=== PATIENT | male | born 1975 | race Caucasian/White ===

== ENCOUNTER → 2019-12-21 20:42 | Outpatient (CLI) | payer OTHER, SELFPAY ==
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
== END ==
PROVIDERS: PCP Family Medicine; Referring Provider Family Medicine; Visit Provider Family Medicine
DX: S69.91XA Unspecified injury of right wrist, hand and finger(s), initial encounter (principal); W22.8XXA Striking against or struck by other objects, initial encounter
CPT/HCPCS: 73130

== ENCOUNTER → 2019-12-26 15:53 | Outpatient (CLI) | payer OTHER, SELFPAY ==
--- NOTE | 2019-12-26 | DI.US.S_ITS ---
PROCEDURE: US SCROTUM INDICATIONS: Other specified disorders of the male genital organs TECHNIQUE: Real-time scanning was performed of the scrotum and testicles, with image documentation. Color and pulse Doppler interrogation was performed of both testicles. COMPARISON: None. FINDINGS: Right: Testicle is normal in size at 4.9 x 3.1 x 2.9 cm, and homogenous in echotexture. 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 Epididymis is normal in overall size and morphology. Epididymal cysts, largest measuring 3.0 cm trace hydrocele. No varicoceles. Overlying scrotal skin is normal in thickness. Left: Testicle is normal in size at 4.5 x 2.9 x 2.7 cm, and homogeneous in echotexture. Epididymis is normal in overall size and morphology. Epididymal cysts, largest measuring 9 mm. Trace hydrocele. No varicoceles. Overlying scrotal skin is normal in thickness. Doppler: Color and pulse Doppler demonstrate normal and symmetric arterial flow in both testicles. IMPRESSION: 1. 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 Comparison with prior imaging would be helpful if available. 2. Bilateral epididymal cyst. Dictated by: Buddy CLEVEALND Interpreted: Simon Gamino MD on 12/26/2019 at 17:00 Approved by: Simon Gamino M.D. on 12/26/2019 at 17:40
== END ==
PROVIDERS: PCP Family Medicine; Referring Provider Family Medicine; Visit Provider Family Medicine
DX: N50.89 Other specified disorders of the male genital organs (principal); N50.3 Cyst of epididymis; N44.2 Benign cyst of testis
CPT/HCPCS: 76870